=== PATIENT | female | born 1940 | race Caucasian/White ===

== ENCOUNTER 2016-11-20 09:13 | Inpatient (IN) | payer MEDICARE, MEDICAID ==
[~2016-11-20 09:13] MED LIST: ACETAMINOPHEN325 M1 PO; ACETAMINOPHEN325 MG PO; ACTONEL35 MG; ACTONEL35 MG PO; ADDERALL 10 MG10 M2 PO; ADDERALL XR 2020 MG; ADDERALL XR 2020 MG PO; ADULT ASPIRIN81 MG; ADULT ASPIRIN81 MG PO; ADVAIR 2501 DISK W/D IH; ADVAIR 25028 BLISTER INH; ADVAIR 5001 DISK W/D IH; ADVIL200 M3 PO; ALAVERT10 MG PO; ALBUTEROL SULF8.5 GM IH; ALBUTEROL17 GM; ALDACTONE50 M1 PO; ALENDRONATE SOD70 M1 PO; ALENDRONATE SOD70 M2 PO; AMBIEN PAK10 MG PO; AMBIEN PAK5 MG PO; AMBIEN10 MG; AMBIEN10 MG PO; AMBIEN5 MG PO; AMOXICILLIN875 MG PO; AMPHETAMINE SAL10 MG PO; ANTI-DIARRHEAL2 MG PO; ARICEPT10 M1 PO; ARICEPT10 MG PO; ARICEPT10 MG/TAB PO; ARICEPT5 MG PO; ASPIRIN EC81 MG PO; ASPIRIN81 MG PO; ATIVAN0.5 M1 PO; ATIVAN1 M2 PO; ATROPINE S0.4 MG/1 M SC; BACTRIM DS TAB1 EAC2 PO; BAYER CHEWABLE81 MG PO; BISACODYL10 MG RC; BISACODYL10 MG/SU RC; BUPROPION XL300 MG PO; CALCIUM 500 WIT1 TAB; CELEBREX200 MG; CELEBREX200 MG PO; CELEXA20 MG; CERTAGEN1 TAB PO; CILOSTAZOL100 M1 PO; CLARITIN10 M6 PO; CLARITIN10 MG; CLOPIDOGREL75 M1 PO; COL-RITE100 MG PO; COLACE100 MG; COLACE100 MG PO; COMPAZINE5 MG/TAB PO; DECADRON GT; DECADRON4 MG PO; DOCU SOFT100 M1 PO; DONEPEZIL HCL10 M2 PO; ENEMA133 M4 RC; FEOSOL325 M1 PO; FLEET ENEMA118 ML RC; FLONASE16 GM NS; FLUDROCORTISON0.1 M1 PO; FOSAMAX70 M1 PO; FOSAMAX70 MG; FOSRENOL PO; FOSRENOL500 M1 PO; FOSRENOL500 MG; FOSRENOL500 MG PO; GABITRIL4 MG; GABITRIL4 MG PO; GUAIFENESIN200 M1 PO; H PO; HYDROCORTISON28.4 G2 TP; HYDROCORTISONE28 G4 TP; IBUPROFEN200 MG PO; IBUPROFEN400 MG PO; IMODIUM2 MG PO; K-TAB ER20 ME1 PO; KLOR-CON 1010 ME1 PO; LAMISIL250 MG; LAMISIL250 MG PO; LASIX20 M1 PO; LASIX40 M1 PO; LEVAQUIN500 MG PO; LEVAQUIN750 MG; LEVOTHROID75 MCG PO; LEVOTHYROXINE100 MC1 PO; LEVOXYL75 MCG PO; LEVOXYL88 MCG PO; LEXAPRO20 M2 PO; LOMOTIL1 TAB PO; LOPERAMIDE2 M3 PO; LUNESTA3 MG; MAALOX PO; MEDROXYPROGESTER5 MG; MEDROXYPROGESTER5 MG PO; METHYLPREDNISOLO4 M2 PO; MILK OF MA400 MG/5 M PO; MILK OF MAGNESIA PO; MOBIC7.5 M2 PO; MORPHINE IR15 MG/TAB PO; MORPHINE SU15 MG/TAB PO; MORPHINE SULFAT1 PO; MORPHINE SULFAT15 M; MORPHINE SULFAT15 M1 PO; MS CONTIN15 M1 PO; MS CONTIN30 M1 PO; MULTIVITAMIN1 TAB; MYCOLOG15 GM TOP; MYSOLINE50 M1 PO; MYSOLINE50 M3 PO; MYSOLINE50 MG PO; NAPRELAN500 MG; NASACORT AQ16.5 GM; NASACORT AQ16.5 GM NS; NEFAZODONE HCL200 MG PO; NEFAZODONE PO; NEOSPORIN ANT70.8 GM TP; NORVASC5 M1 PO; NORVASC5 MG; NORVASC5 MG PO; OLANZAPINE5 M1 PO; OMEPRAZOLE MAGN20 MG PO; OMEPRAZOLE20 M2 PO; OMEPRAZOLE20 M4 PO; ORAMORPH SR15 M1 PO; ORGAN-I NR200 M1 PO; OXYCODONE-APAP PO; OYST CAL D TABL PO; OYSTER CALCIUM PO; OYSTER SHELL C1 EAC6 PO; PREMARIN0.625 MG; PREMARIN0.625 MG PO; PRILOSEC OTC20 MG PO; PRILOSEC20 MG; PRILOSEC20 MG PO; PROAIR HFA; PROAIR INH; PROCHLORPERAZIN10 MG PO; PROCHLORPERAZINE5 MG PO; PROTONIX40 MG PO; PROVENTIL17 GM; PROVERA5 MG; PROVERA5 MG PO; PROVIGIL200 MG; RESOURCE PO; SENNA8.6 M1 PO; SENOKOT-S TABL1 EACH PO; SENOKOT-S TABLE1 TAB; SERZONE; SERZONE PO; SYNTHROID88 MCG; THERA M1 TAB PO; THERA-M1 TAB PO; THEREMS-M1 TA PO; TRIPLE ANTIBI28.4 GM TP; TUSSIN DM PO; TUSSIN10 MG/5 ML PO; TYLENOL ARTHRI650 M1 PO; TYLENOL325 MG PO; WELLBUTRIN XL150 M1 PO; WELLBUTRIN XL300 M1 PO; WELLBUTRIN XL300 MG; WELLBUTRIN XL300 MG PO; ZITHROMAX250 MG PO; ZOFRAN ODT4 MG PO; ZOFRAN4 M2 PO; ZOFRAN8 M1 PO; ZOLPIDEM TARTRA10 M1 PO; ZYPREXA5 MG; ZYPREXA5 MG PO; [UNRECOGNIZED DRUG - OTHER] PO; [UNRECOGNIZED DRUG - OTHER] PO; [UNRECOGNIZED DRUG - OTHER] PO
[2016-11-20 10:53] LABS: PROTHROMBIN TIME 11.6 SECONDS (9.0-13.6)
[2016-11-21 07:12] LABS: BASO % 0.3 % (0-2); HGB-HEMOGLOBIN 7.7 gm/dl (12.0-15.5); IMMATURE GRANULOCYTES ABSOLUTE 0.02 tho/cmm (0-0.03); IMMATURE GRANULOCYTES PERCENT 0.2 % (0-0.3); LYMPH % 47.8 % (20-45); MCH (MEAN CORPUSCULAR HGB) 23.8 pg (28.0-32.0); MCHC MEAN CORPUSCULAR HGB CONC 30.8 % (32.0-36.0); MCV (MEAN CELL VOLUME) 77.2 fl (82.0-96.0); MEAN PLATELET VOLUME 8.7 cmc (9.4-12.4); MONO % 8.9 % (0-12); NEUTROPHIL ABSOLUTE COUNT 5.1 tho/cmm (1.6-8.0); NEUTROPHIL-AUTOMATED 5.1 tho/cmm (1.6-8.0); NEUTROPHILS % 42.8 % (40-80); PLATELET COUNT 233 tho/cmm (150-450); RED BLOOD COUNT 3.24 mil/cmm (4.00-5.20); WHITE BLOOD COUNT 11.9 tho/cmm (4.0-10.0)
[2016-11-21 07:16] LABS: LYMPH ABSOLUTE COUNT 5.7 tho/cmm (0.8-4.5); MONOCYTE ABSOLUTE COUNT 1.1 tho/cmm (0.0-1.2)
[2016-11-21 07:29] LABS: ANION GAP 10 mmol/L (0-20); BLOOD UREA NITROGEN 31 mg/dl (6-24); CALCIUM 7.8 mg/dl (8.5-10.5); CARBON DIOXIDE-VENOUS 33 mmol/L (22-32); CHLORIDE 103 mmol/l (96-110); CREATININE 0.97 mg/dl (0.50-1.10); GLUCOSE 109 mg/dL (70-110); MAGNESIUM 2.2 mg/dl (1.3-2.6); POTASSIUM 3.7 mmol/L (3.7-5.1); SODIUM 142 mmol/L (135-145); eGFR VALUE FOR BLACK 66 mL/Min
[2016-11-21 09:55] LABS: WBC MORPHOLOGY VARIANT LYMPHS
[2016-11-22 05:29] LABS: BASO % 0.1 % (0-2); HCT-HEMATOCRIT 25.5 % (34.0-49.0); HGB-HEMOGLOBIN 8.1 gm/dl (12.0-15.5); IMMATURE GRANULOCYTES ABSOLUTE 0.02 tho/cmm (0-0.03); IMMATURE GRANULOCYTES PERCENT 0.2 % (0-0.3); LYMPH % 37.8 % (20-45); LYMPH ABSOLUTE COUNT 3.2 tho/cmm (0.8-4.5); MCH (MEAN CORPUSCULAR HGB) 24.6 pg (28.0-32.0); MCHC MEAN CORPUSCULAR HGB CONC 31.8 % (32.0-36.0); MCV (MEAN CELL VOLUME) 77.5 fl (82.0-96.0); MEAN PLATELET VOLUME 8.9 cmc (9.4-12.4); MONO % 5.6 % (0-12); MONOCYTE ABSOLUTE COUNT 0.5 tho/cmm (0.0-1.2); NEUTROPHIL ABSOLUTE COUNT 4.8 tho/cmm (1.6-8.0); NEUTROPHIL-AUTOMATED 4.8 tho/cmm (1.6-8.0); NEUTROPHILS % 56.3 % (40-80); PLATELET COUNT 207 tho/cmm (150-450); RED BLOOD COUNT 3.29 mil/cmm (4.00-5.20); RED CELL DISTRIBUTION WIDTH 17.8 % (12.4-16.4); WHITE BLOOD COUNT 8.5 tho/cmm (4.0-10.0)
[2016-11-22 05:46] LABS: ANION GAP 11 mmol/L (0-20); BLOOD UREA NITROGEN 24 mg/dl (6-24); CALCIUM 7.8 mg/dl (8.5-10.5); CARBON DIOXIDE-VENOUS 30 mmol/L (22-32); CHLORIDE 107 mmol/l (96-110); CREATININE 0.75 mg/dl (0.50-1.10); GLUCOSE 138 mg/dL (70-110); POTASSIUM 3.6 mmol/L (3.7-5.1); SODIUM 144 mmol/L (135-145); eGFR VALUE FOR BLACK 90 mL/Min
[2016-11-23 05:07] LABS: BASO % 0.2 % (0-2); EOS % 0.1 % (0-7); HGB-HEMOGLOBIN 8.2 gm/dl (12.0-15.5); IMMATURE GRANULOCYTES ABSOLUTE 0.02 tho/cmm (0-0.03); IMMATURE GRANULOCYTES PERCENT 0.2 % (0-0.3); LYMPH % 47.9 % (20-45); LYMPH ABSOLUTE COUNT 4.2 tho/cmm (0.8-4.5); MCH (MEAN CORPUSCULAR HGB) 24.7 pg (28.0-32.0); MCHC MEAN CORPUSCULAR HGB CONC 31.5 % (32.0-36.0); MCV (MEAN CELL VOLUME) 78.3 fl (82.0-96.0); MEAN PLATELET VOLUME 9.2 cmc (9.4-12.4); MONO % 8.5 % (0-12); MONOCYTE ABSOLUTE COUNT 0.8 tho/cmm (0.0-1.2); NEUTROPHIL ABSOLUTE COUNT 3.8 tho/cmm (1.6-8.0); NEUTROPHIL-AUTOMATED 3.8 tho/cmm (1.6-8.0); NEUTROPHILS % 43.1 % (40-80); PLATELET COUNT 220 tho/cmm (150-450); RED BLOOD COUNT 3.32 mil/cmm (4.00-5.20); RED CELL DISTRIBUTION WIDTH 18.4 % (12.4-16.4); WHITE BLOOD COUNT 8.8 tho/cmm (4.0-10.0)
[2016-11-23 05:23] LABS: ANION GAP 11 mmol/L (0-20); BLOOD UREA NITROGEN 15 mg/dl (6-24); CALCIUM 7.9 mg/dl (8.5-10.5); CARBON DIOXIDE-VENOUS 29 mmol/L (22-32); CHLORIDE 108 mmol/l (96-110); CREATININE 0.62 mg/dl (0.50-1.10); GLUCOSE 92 mg/dL (70-110); SODIUM 144 mmol/L (135-145); eGFR VALUE FOR BLACK >90 mL/Min
[2016-11-23 05:26] LABS: POTASSIUM 3.7 mmol/L (3.7-5.1)
[2016-11-23] MEDS ORDERED: ULTRAM50 M1 PO (11:21)
[2016-11-23] MEDS ORDERED: ROXICODONE5 M2 PO (11:21)
[2016-11-23] MEDS ORDERED: ASPIRIN325 M3 PO (13:04)
== END 2016-11-23 14:35 | DRG 483 ==
LOC: SHSC 09:13 → ORE 12:28 → PACU 15:06 → 5EA 16:30
PROVIDERS: Family Medicine; Internal Medicine; ADMIT Orthopaedic Surgery Sports Medicine
PROC: 0RRJ00Z Replacement of Right Shoulder Joint with Reverse Ball and Socket Synthetic Substitute, Open Approach (ICD-10-PCS; principal; 2016-11-20)
DX: M75.121 Complete rotator cuff tear or rupture of right shoulder, not specified as traumatic (principal); D62 Acute posthemorrhagic anemia; J44.9 Chronic obstructive pulmonary disease, unspecified; C91.11 Chronic lymphocytic leukemia of B-cell type in remission; M12.811 Other specific arthropathies, not elsewhere classified, right shoulder; E03.9 Hypothyroidism, unspecified; Z66 Do not resuscitate; I73.89 Other specified peripheral vascular diseases; G47.00 Insomnia, unspecified; R60.9 Edema, unspecified; I10 Essential (primary) hypertension; Z79.52 Long term (current) use of systemic steroids; Z23 Encounter for immunization
CPT/HCPCS: C1713; C9290; G0009; G8978-GP-CJ; G8979-GP-CJ; J0690; J1170; J1720; J1885; J2270; J3010; J7040; J7050; P9016

== ENCOUNTER 2017-02-06 22:36 | Emergency (ER) | payer MEDICARE, MEDICAID ==
[~2017-02-06 22:36] MED LIST changes: +ASPIRIN325 M3 PO; +ROXICODONE5 M2 PO; +ULTRAM50 M1 PO
[2017-02-06] MEDS ORDERED: BUMETANIDE2 M2 (23:25)
[2017-02-06] MEDS ORDERED: TYLENOL325 M2 PO (23:26)
== END 2017-02-07 01:40 ==
LOC: EDMED 22:36
PROC: 0HQ0XZZ Repair Scalp Skin, External Approach (ICD-10-PCS; principal; 2017-02-07)
DX: S01.01XA Laceration without foreign body of scalp, initial encounter (principal); F03.90 Unspecified dementia, unspecified severity, without behavioral disturbance, psychotic disturbance, mood disturbance, and anxiety; F31.9 Bipolar disorder, unspecified; M19.90 Unspecified osteoarthritis, unspecified site; I10 Essential (primary) hypertension; Z85.6 Personal history of leukemia; Z23 Encounter for immunization; W18.09XA Striking against other object with subsequent fall, initial encounter; Y92.009 Unspecified place in unspecified non-institutional (private) residence as the place of occurrence of the external cause